=== PATIENT | female | born 1990 | race American Indian/Alaskan Native ===

== ENCOUNTER 2019-01-30 10:14 | Emergency (ER) | payer MEDICAID ==
[2019-01-30 10:15] VITALS: BMI 39.1
--- NOTE | 2019-01-30 10:46 | C.PDOC ---
History Of Present Illness 28 year old female w/ hx of trichomoniasis, gallbladder removal, and diabetes, presents to ED with complaint of yellowish vaginal discharge for the past 2 days. Patient notes that she had protected sex w/ a male 1 week ago. Patient is concerned that she may have an STD. She denies any rash or ulcers. She otherwise denies any abdominal pain or dysuria. Patient's last menstrual period was 01/12/19. Patient denies fall, trauma, constipation, diarrhea, chills, sweats, or back pain. Time Seen by Provider: 01/30/19 10:25 Chief Complaint (Nursing): Female Genitourinary History Per: Patient History/Exam Limitations: no limitations Onset/Duration Of Symptoms: Days (2) Current Symptoms Are (Timing): Still Present Associated Symptoms: denies: Fever, Chills, Back Pain Abnormal Vaginal Bleeding: No Last Menstral Period: 01/12/19 Past Medical History Reviewed: Historical Data, Nursing Documentation, Vital Signs Vital Signs: Last Vital Signs Temp 98.6 F 01/30/19 10:26 Pulse 90 01/30/19 10:26 Resp 18 01/30/19 10:26 BP 142/88 01/30/19 10:26 Pulse Ox 97 01/30/19 10:26 - Medical History PMH: Diabetes, Sexually Transmitted Disease (Trichomoniasis) Surgical History: Cholecystectomy Family History: States: Unknown Family Hx - Social History Hx Alcohol Use: Yes Hx Substance Use: No - Immunization History Hx Tetanus Toxoid Vaccination: No Hx Influenza Vaccination: No Hx Pneumococcal Vaccination: No Review Of Systems Constitutional: Negative for: Fever, Chills, Sweats, Weakness Eyes: Negative for: Pain, Vision Change, Conjunctivae Inflammation ENT: Negative for: Ear Pain, Ear Discharge, Nose Pain, Nose Discharge Cardiovascular: Negative for: Chest Pain, Palpitations, Orthopnea Respiratory: Negative for: Cough Gastrointestinal: Negative for: Nausea, Vomiting, Abdominal Pain, Constipation, Melena, Hematochezia, Hematemesis Genitourinary: Positive for: Vaginal Discharge. Negative for: Dysuria, Frequency, Incontinence, Hematuria, Vaginal Bleeding, Pelvic Pain, Rash Musculoskeletal: Negative for: Neck Pain, Shoulder Pain, Back Pain Skin: Negative for: Rash, Lesions, Jaundice, Bruising Neurological: Negative for: Weakness, Numbness, Dizziness Physical Exam - Physical Exam Appears: Well, Non-toxic, No Acute Distress Skin: Normal Color, Warm, Dry Head: Atraumatic, Normacephalic Eye(s): bilateral: Normal Inspection, PERRL, EOMI Ear(s): Bilateral: Normal Nose: Normal Oral Mucosa: Moist Tongue: Normal Appearing Lips: Normal Appearing Throat: Normal, No Erythema Neck: Normal, Trachea Midline, Supple, Other (no meningeal signs) Lymphatic: No Adenopathy Chest: Symmetrical Cardiovascular: Rhythm Regular, No Friction Rub Respiratory: Normal Breath Sounds, No Rales, No Rhonchi, No Wheezing Gastrointestinal/Abdominal: Normal Exam, Soft, No Tenderness, No Mass, No Distention, No Guarding Back: Normal Inspection, No CVA Tenderness, No Vertebral Tenderness, No Paraspinal Tenderness Pelvic: No Vaginal Bleeding, Vaginal Discharge (yellowish discharge, non-cottage cheese like), No Cervical Motion Tenderness, No Cervix Open, No Adnexal Tenderness, No Mass, No Enlarged Uterus, No Other (rashes) Extremity: Normal ROM Extremity: Bilateral: Atraumatic, Normal Color And Temperature Pulses: Left Dorsalis Pedis: Normal, Right Dorsalis Pedis: Normal Neurological/Psych: Oriented x3, Normal Speech, Normal Cognition Gait: Steady ED Course And Treatment O2 Sat by Pulse Oximetry: 97 (in RA) Medical Decision Making Medical Decision Making: Plan: Chlamydia/GC, UA, and U-preg ordered for patient Differential Dx: Chlamydia, gonorrhea, trichomoniasis versus yeast infection Impression: 28 year old female with vaginal discharge. Yellowish vaginal d/c noted on exam. No CMT. No adenexal tenderness. No bleeding noted. No Whitish cottage cheese discharge Urine w/ +WBC. Given hx of trich, will rx. GC culture done, will rx empirically for G/C. Pt notes she does not want HIV testing. I endorsed need for her to followup with PMD. I endorsed to patient that she needs to tell her partner and tell him to get tested. I also endorsed to her the importance of safe sex at all times. She notes understanding. Disposition - Disposition Referrals: [facility] [Outside] [facility] [Outside] [facility] [Outside] Douglas Camargo MD [Staff Provider] - Allegra Victoria MD [Medical Doctor] - [facility] [Outside] [facility] [Outside] Disposition: HOME/ ROUTINE Disposition Time: 11:30 Condition: GOOD Additional Instructions: LEONEL LANDAVERDE, thank you for letting us take care of you today. Your provider was Julio Rowell and you were treated for VAGINAL DISCOMFORT. The emergency medical care you received today was directed at your acute symptoms. If you were prescribed any medication, please fill it and take as directed. It may take several days for your symptoms to resolve. Return to the Emergency Department if your symptoms worsen, do not improve, or if you have any other problems. Please contact your doctor or call one of the physicians/clinics you have been referred to that are listed on the Patient Visit Information form that is included in your discharge packet. Bring any paperwork you were given at discharge with you along with any medications you are taking to your follow up visit. Our treatment cannot replace ongoing medical care by a primary care provider outside of the emergency department. Thank you for allowing the [facility] team to be part of your care today. If you had an X-Ray or CT scan: A Radiologist will review the ED reading if any change in treatment is needed we will contact you. If you had a blood, urine, or wound culture: It will take several days for the results, if any change in treatment is needed we will contact you. If you had an STI test: It will take 48 hours for the results. Please call after 1 week if you have not heard back. Prescriptions: Nitrofurantoin Macrocrystal [Nitrofurantoin] 100 mg PO BID 5 Days #10 capsule Instructions: Screening for Sexually Transmitted Infections, STD Prevention, Sexually Transmitted Diseases (ED), Safe Sex (ED) Forms: [facility] ([place]) - Clinical Impression Clinical Impression: UTI (urinary tract infection), Screen for STD (sexually transmitted disease) - Scribe Statement The provider has reviewed the documentation as recorded by the Scribe (Mandi Rodriguez) All medical record entries made by the Scribe were at my direction and personally dictated by me. I have reviewed the chart and agree that the record accurately reflects my personal performance of the history, physical exam, medical decision making, and the department course for this patient. I have also personally directed, reviewed, and agree with the discharge instructions and disposition.
[2019-01-30 10:59] LABS: SQUAMOUS EPITHIAL 33 /hpf (0-5); URINE BACTERIA RARE (<OCC); URINE BILIRUBIN NEGATIVE (NEGATIVE); URINE BLOOD NEGATIVE (NEGATIVE); URINE CLARITY Hazy (Clear); URINE COLOR Yellow (YELLOW); URINE GLUCOSE (UA) NORMAL (Normal); URINE LEUKOCYTE ESTERASE 3+ Leu/uL (Negative); URINE PROTEIN NEGATIVE (NEGATIVE); URINE UROBILINOGEN NORMAL mg/dL (0.2-1.0)
[2019-01-30] MEDS ORDERED: cefTRIAXone (Rocephin) 250 mg Inj IM STA (11:00)
[2019-01-30 11:26] VITALS: BP 124/85; PULSE 83; RESP 16; TEMP 98
[2019-01-30 11:33] VITALS: O2SAT 97
== END 2019-01-30 11:48 | disposition home or self-care (01) ==
LOC: C.ER 10:14
DX: N39.0 Urinary tract infection, site not specified (principal); Z11.3 Encounter for screening for infections with a predominantly sexual mode of transmission
CPT/HCPCS: 81001; 81025; 87491; 87591; 96372; 99284; J0696